=== PATIENT | male | born 1960 | race African-American/Black ===

== ENCOUNTER 2024-03-21 05:19 | Day surgery (SDC) | payer OTHER ==
[2024-03-16 15:55] VITALS: BMI 30.7
[2024-03-21] MEDS ORDERED: PROPOFOL 20 ML ONE (12:47)
[2024-03-21] MEDS ORDERED: LIDOCAINE HCL/PF 2% SDV 5ML VIAL ONE (12:47)
[2024-03-21] MEDS ORDERED: MIDAZOLAM HCL 2 MG/2 ML SINGLE DOSE VIAL ONE (12:49)
[2024-03-21] MEDS: ceFAZolin 2 GRAM PREMIX BAG IVPB ONE (13:19)
[2024-03-21] MEDS ORDERED: ONDANSETRON 4 MG/2 ML VIAL ONE (13:23)
[2024-03-21] MEDS ORDERED: DEXAMETHASONE SOD PHOSPHATE 4 MG/1 ML VIAL ONE (13:23)
[2024-03-21] MEDS ORDERED: ceFAZolin SODIUM 1 GM VIAL ONE (13:23)
[2024-03-21] MEDS ORDERED: KETOROLAC TROMETHAMINE 30 MG/1 ML VIAL ONE (13:23)
[2024-03-21] MEDS ORDERED: oxyCODONE HCL 5 MG TABLET PO PRN (13:46)
[2024-03-21] MEDS ORDERED: PROMETHAZINE HCL 25 MG/1 ML VIAL IVPB PRN (13:46)
[2024-03-21] MEDS ORDERED: ONDANSETRON 4 MG/2 ML VIAL IVPUSH PRN (13:46)
[2024-03-21] MEDS: ACETAMINOPHEN 1000 MG/100 ML BAG IVPB ONE (13:52)
[2024-03-21] MEDS: LACTATED RINGERS SOLUTION 1,000 ML IV SCH (13:55)
[2024-03-21] MEDS ORDERED: ELECTROLYTE-148 SOLN 1,000 ML IV SCH (14:15)
[2024-03-21] MEDS: oxyCODONE HCL 5 MG TABLET PO PRN (14:51)
[2024-03-21 14:58] VITALS: RESP 20; TEMP 97.5
[2024-03-21 15:46] VITALS: BP 129/82; PULSE 80
== END 2024-03-21 15:53 | disposition home or self-care (01) ==
LOC: JASU-SURG 05:19
PROVIDERS: ATTEND Urology
PROC: 0T7D8DZ Dilation of Urethra with Intraluminal Device, Via Natural or Artificial Opening Endoscopic (ICD-10-PCS; principal; 2024-03-21 13:30)
DX: N40.1 Benign prostatic hyperplasia with lower urinary tract symptoms (principal); R39.198 Other difficulties with micturition
CPT/HCPCS: C9740; L8699; 94760; J0131